=== PATIENT | male | born 1975 | race Caucasian/White ===

== ENCOUNTER 2021-11-03 04:04 | Emergency (ER) | payer OTHER ==
[2021-11-03 04:55] LABS: BASOPHIL 0.8 % (0-2); EOSINOPHIL 2.3 % (0-5); HCT 44.1 % (42.0-52.0); HGB 14.8 g/dl (13.2-18.0); LYMPHOCYTE 30.6 % (15-48); MCH 33.5 pg (25.0-31.0); MCHC 33.6 g/dL (32.0-36.0); MCV 99.8 fL (78.0-100.0); MONOCYTE 9.8 % (0-12); MPV 8.6 fL (6.0-9.5); NEUTROPHIL 56.2 % (41-80); NRBC 0; PLT 284 K/uL (150-400); RBC 4.42 M/uL (4.70-6.00)
[2021-11-03 05:06] LABS: INR 0.95 (0.9-1.2); PROTHROMBIN TIME 12.1 SECONDS (11.8-13.4); PTT 27.1 SECONDS (24.4-34.7)
[2021-11-03 05:31] LABS: BUN/CREAT RATIO (CALC) 15.4 RATIO; CREATININE 1.3 mg/dL (0.67-1.17); POTASSIUM 4.2 mmol/L (3.5-5.1)
== END 2021-11-03 05:32 | disposition home or self-care (01) ==
LOC: FER 04:04
PROVIDERS: Internal Medicine
DX: S70.11XA Contusion of right thigh, initial encounter (principal); I10 Essential (primary) hypertension; F17.210 Nicotine dependence, cigarettes, uncomplicated; Z79.899 Other long term (current) drug therapy
CPT/HCPCS: 36415; 80048; 84145; 85025; 85610; 85730; 99284